=== PATIENT | female | born 1950 | race Caucasian/White ===

== ENCOUNTER 2016-04-28 12:04 | Emergency (ER) | payer MEDICARE ==
[2016-04-28 13:09] LABS: Urine Bilirubin Negative (NEGATIVE); Urine Blood Negative /ul (NEGATIVE); Urine Ketone Negative (NEGATIVE); Urine Nitrite Negative (NEGATIVE); Urine Protein Negative (NEGATIVE); Urine Specific Gravity 1.015 SP.GR. (1.005-1.010); Urine Urobilinogen Normal (NORMAL)
[2016-04-28 13:10] LABS: Urine Appearance Clear; Urine Bacteria None Seen; Urine Color Yellow; Urine RBC None Seen /hpf (0-5); Urine WBC 0-5 /hpf (0-5)
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
[2016-04-28 13:46] LABS: Hematocrit 33.2 % (37.0-47.0); Hemoglobin 10.2 gm/dL (12.5-16.0); Mean Cell Volume 97.6 fl (78-100); Mean Corpuscular Hgb Conc 30.7 g/dl (32-36); Mean Platelet Volume 8.8 fl (6.0-9.5); Neutrophil # 7.4 K/mm3 (1.3-6.0); Neutrophil % 77.1 % (42-75.0); Platelet Count 232 K/mm3 (150-450); Red Cell Distribution Width 13.3 % (11.5-14.0); White Blood Count 9.7 K/mm3 (4.0-10.5)
[2016-04-28 14:02] LABS: Albumin * 3.2 gm/dl (3.4-5.0); Anion Gap 14.4 mmol/L (6.8-13.8); Bilirubin, Total 0.3 mg/dL (0.0-1.1); Ca. Corrected For Albumin 9.3 mg/dL (8.4-10.2); Carbon Dioxide 25.4 mmol/L (24-32.6); Potassium 4.8 mmol/L (3.4-4.6); Total Protein 6.7 gm/dL (6.2-8.2)
[2016-04-28 14:59] VITALS: BP 136/67
== END 2016-04-28 15:13 | disposition home or self-care (01) ==
LOC: ER 12:04
DX: S06.0X0A Concussion without loss of consciousness, initial encounter (principal); J44.9 Chronic obstructive pulmonary disease, unspecified; I50.9 Heart failure, unspecified; I25.2 Old myocardial infarction; F17.210 Nicotine dependence, cigarettes, uncomplicated; W19.XXXA Unspecified fall, initial encounter; Y92.009 Unspecified place in unspecified non-institutional (private) residence as the place of occurrence of the external cause

== ENCOUNTER 2016-05-01 10:29 | Emergency (ER) | payer MEDICARE ==
[2016-05-01] MEDS ORDERED: NITROGLYCERIN 0.4 MG/TAB BTL SL ONE ×2 (11:05→11:12)
--- NOTE | 2016-05-01 11:13 | ERNOTE ---
Chest Pain/Cardiac HPI Time Seen by Provider: 05/01/16 10:44 Source: patient, past records Exam Limitations: no limitations Immunizations: IMMUNIZATION HX Immunizations Up to Date Yes History of Influenza Vaccine No Hx Pneumococcal Vaccination No Allergies/Adverse Reactions: Allergies codeine Allergy (Verified 05/01/16 10:48) acetaminophen Adverse Reaction (Verified 05/01/16 10:48) Hives naproxen sodium [From Aleve] Adverse Reaction (Verified 05/01/16 10:48) Hives Home Medications: HOME MEDICATIONS ALPRAZolam [Xanax] 1 mg PO TID PRN 04/28/16 [Last Taken Unknown] Albuterol Sulfate [Proair Respiclick] 90 mcg IH Q4H 04/28/16 [Last Taken Unknown ] Albuterol Sulfate/Ipratropium [Duoneb 2.5-0.5MG/3ML Soln] 3 ml IH TID 04/28/16 [ Last Taken Unknown] Aspirin 325 mg PO DAILY 04/28/16 [Last Taken Unknown] Clopidogrel Bisulfate [Plavix] 75 mg PO DAILY 04/28/16 [Last Taken Unknown] Esomeprazole Magnesium 40 mg PO DAILY 04/28/16 [Last Taken Unknown] Ferrous Sulfate [Iron] 325 mg PO DAILY 04/28/16 [Last Taken Unknown] Fluticasone Propionate [Flovent Hfa] 2 puff IH BID 04/28/16 [Last Taken Unknown] Levothyroxine Sodium [Synthroid] 25 mcg PO DAILY 04/28/16 [Last Taken Unknown] Nitroglycerin [Nitrostat] 0.4 mg SL Q5MIN PRN 04/28/16 [Last Taken Unknown] Polyethylene Glycol 3350 [Miralax] 17 gm PO DAILY 04/28/16 [Last Taken Unknown] Umeclidinium Brm/Vilanterol Tr [Anoro Ellipta 62.5-25 Mcg INH] 1 puff INH DAILY 04/28/16 [Last Taken Unknown] Narrative: Patient started to have chest pain last night, central with radiation to right jaw. She has a history of [place] x2, last almost 20 years ago, the pain reminds her of one of the [place]. The patient has an extensive medical history and has with her discharge notes form [facility] as well as [facility]. 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 She used to see Dr Prado in [place], but he moved and she has been trying to get in with a different doctor to get her medications including her pain medications refilled. She last took percocet on 04/29 and states 'I am detoxing' . See also note from ER visit here on 04/28. Date (Duration): 04/30/16 Time (Timing): 22:00 Timing: constant Severity/Quality: pressure Location: central Chest Pain Radiation: jaw Activities at Onset: none Nitro Today/Relief: 0.4 mg x 1 - at 06:00 no relieve Aspirin Treatment Today: 325 mg x 1, provided at home Associated Symptoms: Present: shortness of breath, nausea. Absent: vomiting Prior Chest Pain/Cardiac Workup: Reports: prior chest pain, heart attack Prior Treatment: Reports: recently seen. Denies: currently on antibiotics Review of Systems - Review of Systems Constitutional: Absent: recent illness, fever Respiratory: Present: shortness of breath Cardiology: Present: See HPI, chest pain Gastrointestinal/Abdominal: Present: See HPI, nausea. Absent: vomiting, abdominal pain Neurological: Absent: headache - Patient's Past Medical History Patient History - Medical: Anxiety, Chronic Pain, GERD, Hypothyroidism, Osteoporosis, Other - SIADH, CREST syndrom, malnutrition Patient History - Cardiac/Respiratory: Coronary Heart Disease, COPD, CVA/Stroke , Myocardial Infarction, Other - carotis stenosis Patient History - Cancer: No Hx of Cancer Patient History - Surgical Procedures: Other Patient History - Other: None - Social History Living Situations: home Abuse History: No History of abuse Psych History: No pertinent hx Smoking Status: Current every day smoker Cigarettes Packs Per Day: 2 Alcohol Use: none Drug Use: none - Immunizations Immunizations Up to Date: Yes Hx Pneumococcal Vaccination: No History of Influenza Vaccine: No Physical Exam - Physical Exam General Appearance: Present: wd/wn, alert, mild distress, anxious, cachetic Ears, Nose, Throat: Present: dry mucous membranes Respiratory: Present: decreased breath sounds, expiration (prolonged) Cardiovascular/Chest: Present: regular rate, rhythm, no murmur Gastrointestinal/Abdominal: Present: tenderness - mildly throughout Extremity Exam: Present: pedal edema Neurological Exam: Present: alert, oriented, normal mood/affect Skin Exam: Present: normal color, warm/dry ED Progress - Results and Orders Patient's Lab Results:: I have reviewed the patient's lab results. - Vital Signs Patient's Vital Signs:: I have reviewed the patient's vital signs. Vital Signs: Vital Signs 05/01/16 10:36 Temperature 36.6 C Pulse Rate 90 Respiratory 19 Rate Blood Pressure 184/87 O2 Sat by Pulse 98 Oximetry - EKG EKG: NSR, other - prominent T waves EKG read: Interp. by me - X-Ray X-Ray #1 X-Ray: chest - increased vascular markings, central bronchial wall prominence Interpretation: Reviewed by me - Progress/Reassessment Progress Note-Subjective: 05/01/16 11:45 patient is refusing any more nitro, tried to discuss test results, patient states 'I just want my pills' tried to discuss that it is not appropriate to refill chronic pain medications from the ER, offered referral to pain doctor, patient refuses, is very vague what she wants to do for follow up, thinks she might see Dr Fitzgerald, discussed that Dr Tello might not be refilling chronic medications 05/01/16 11:49 discussed with case technician, will come to ER and discuss option with patient 05/01/16 12:51 Per case technician per has appointment tomorrow [facility] [place] to who will refer her to pain clinic discussed this with patient chest pain better, she is not interested in admission for chest pain evaluation at this time, chest pain better Departure - Departure Clinical Impression: Chronic pain Qualifiers: Chronic pain type: chronic pain syndrome Qualified Code(s): G89.4 - Chronic pain syndrome Chest pain Qualifiers: Chest pain type: precordial chest pain Qualified Code(s): R07.2 - Precordial pain Disposition: Home self-care Condition: Fair Instructions: Chronic Pain, Chest Pain Observation Additional Instructions: follow up with Dr Garcia at the [facility] in [place] tomorrow 05/02 at 2:45 pm to discuss pain medications and further care
[2016-05-01 11:14] LABS: Hematocrit 30.5 % (37.0-47.0); Hemoglobin 9.5 gm/dL (12.5-16.0); Mean Corpuscular Hemoglobin 29.6 pg (27-31); Mean Corpuscular Hgb Conc 31.1 g/dl (32-36); Mean Platelet Volume 8.9 fl (6.0-9.5); Neutrophil # 6.7 K/mm3 (1.3-6.0); Neutrophil % 77.8 % (42-75.0); Platelet Count 261 K/mm3 (150-450); Red Blood Count 3.21 M/mm3 (4.2-5.4); Red Cell Distribution Width 13.2 % (11.5-14.0); White Blood Count 8.6 K/mm3 (4.0-10.5)
[2016-05-01 11:19] LABS: INR 1.09 INR (0.90-1.10); Partial Thrombolplastin Time 34.2 Seconds (24-32); Prothrombin Time (Patient) 11.3 Seconds (9.4-11.4)
[2016-05-01 11:24] LABS: ALT 11 U/L (19-67); AST 9 U/L (0-48); Albumin * 3.1 gm/dl (3.4-5.0); Alkaline Phosphatase * 116 U/L (50-170); Anion Gap 12.1 mmol/L (6.8-13.8); BUN/Creatinine Ratio 21.4 (9.0-21.6); Bilirubin, Total 0.2 mg/dL (0.0-1.1); Blood Urea Nitrogen 21 mg/dL (3-23); Ca. Corrected For Albumin 9.5 mg/dL (8.4-10.2); Calcium * 9.1 mg/dL (7.9-10.9); Carbon Dioxide 27.7 mmol/L (24-32.6); Chloride 106 mmol/L (97-106); Glucose * 92 mg/dL (70-110); Potassium 4.8 mmol/L (3.4-4.6); Sodium 141 mmol/L (132-142); Total Protein 6.5 gm/dL (6.2-8.2); Troponin I Less than 0.017 ng/ml (0.00-0.10)
[2016-05-01] MEDS ORDERED: ONDANSETRON HCL/PF 2 MG/ML VIAL ONE (11:32)
[2016-05-01] MEDS ORDERED: ONDANSETRON HCL/PF 2 MG/ML VIAL IV ONE (11:33)
[2016-05-01 12:15] VITALS: BP 182/64
== END 2016-05-01 13:31 | disposition home or self-care (01) ==
LOC: ER 10:29
DX: G89.4 Chronic pain syndrome (principal); R07.2 Precordial pain; J44.9 Chronic obstructive pulmonary disease, unspecified; Z72.0 Tobacco use; E03.9 Hypothyroidism, unspecified; F41.1 Generalized anxiety disorder